=== PATIENT | female | born 1995 | race African-American/Black ===

== ENCOUNTER 2017-11-30 20:21 | Inpatient (IN) | payer OTHER ==
[2017-11-30] MEDS: IV NORMAL SALINE 1000ML BAG 1,000 ML IV (20:31)
[2017-11-30 20:38] LABS: ADD MAN DIFF? NO
[2017-11-30 20:40] LABS: BASO % 0 % (0-3); EOS # 0.1 x10^3/uL (0.0-0.7); EOS % 1 % (0-3); HEMATOCRIT 37.5 % (36.0-47.0); HEMOGLOBIN 12.5 g/dL (12.0-15.5); LYMPH # 3.1 x10^3/uL (1.0-4.8); LYMPH % 26 % (24-48); MEAN CORPUSCULAR HEMOGLOBIN 30 pg (25-35); MEAN CORPUSCULAR HGB CONC 33 g/dL (31-37); MEAN CORPUSCULAR VOLUME 90 fL (79-100); MONO # 0.5 x10^3/uL (0.0-1.1); MONO % 4 % (0-9); NEUT # 8.2 x10^3uL (1.8-7.7); NEUT % 69 % (31-73); PLATELET COUNT 204 x10^3/uL (140-400); RED BLOOD COUNT 4.18 x10^6/uL (3.50-5.40); RED CELL DISTRIBUTION WIDTH 13.5 % (11.5-14.5); WHITE BLOOD COUNT 11.8 x10^3/uL (4.0-11.0)
[2017-11-30 20:50] LABS: ETHANOL < 10 mg/dL (0-10)
[2017-11-30 20:56] LABS: ALBUMIN 3.8 g/dL (3.4-5.0); ALBUMIN/GLOBULIN RATIO 1.1 (1.0-1.7); ALK PHOS 76 U/L (46-116); ALT (SGPT) 67 U/L (14-59); AMYLASE 113 U/L (25-115); ANION GAP 7 (6-14); AST (SGOT) 150 U/L (15-37); BLOOD UREA NITROGEN 8 mg/dL (7-20); BUN/CREATININE RATIO 7 (6-20); CARBON DIOXIDE 28 mmol/L (21-32); CHLORIDE 104 mmol/L (98-107); CREATININE 1.2 mg/dL (0.6-1.0); GFR 56.7; GLUCOSE 138 mg/dL (70-99); SODIUM 139 mmol/L (136-145); TOTAL BILIRUBIN 0.3 mg/dL (0.2-1.0); TOTAL PROTEIN 7.2 g/dL (6.4-8.2)
[2017-11-30 20:59] LABS: POTASSIUM 2.9 mmol/L (3.5-5.1)
[2017-11-30] MEDS: IOHEXOL 300 MG/ML 100ML VIAL. IV (20:59)
[2017-11-30 21:09] LABS: INR 1.2 (0.8-1.1); PARTIAL THROMBOPLASTIN TIME 30 SEC (24-38); PROTHROMBIN TIME PATIENT 14.6 SEC (11.7-14.0)
[2017-11-30] MEDS: MORPHINE SULFATE 4 MG/ML DISP.SYRIN. IV ×2 (21:13→23:29)
[2017-11-30] MEDS: ONDANSETRON PF 4 MG/2 ML VIAL. IV ×2 (21:13→23:29)
[2017-11-30] MEDS ORDERED: CONTRAST GIVEN. MC (21:15)
[2017-11-30] MEDS ORDERED: ACETAMINOPHEN 325 MG TABLET. PO (22:30)
[2017-11-30] MEDS: POTASSIUM CHLORIDE 20 MEQ TABLET.ER. PO ×2 (22:51→23:00)
[2017-12-01] MEDS ORDERED: MORPHINE SULFATE 2 MG/ML DISP.SYRIN. IV (00:45)
[2017-12-01] MEDS: MORPHINE SULFATE 4 MG/ML DISP.SYRIN. IV ×6 (00:52→17:51)
[2017-12-01] MEDS ORDERED: KETOROLAC 15 MG/ML VIAL. IV (08:30)
[2017-12-01] MEDS ORDERED: ZOLPIDEM 5 MG TABLET. PO (08:30)
[2017-12-01] MEDS: NAPROXEN 500 MG TABLET PO ×2 (09:25→22:00)
[2017-12-01] MEDS: FAMOTIDINE 20 MG/2 ML VIAL IVP (09:26)
[2017-12-01] MEDS: POTASSIUM CHLORIDE 20 MEQ TABLET.ER. PO (09:26)
[2017-12-01 09:50] LABS: ADD MAN DIFF? NO
[2017-12-01 09:52] LABS: BASO % 0 % (0-3); EOS % 0 % (0-3); HEMATOCRIT 33.8 % (36.0-47.0); HEMOGLOBIN 11.4 g/dL (12.0-15.5); LYMPH # 1.3 x10^3/uL (1.0-4.8); LYMPH % 11 % (24-48); MEAN CORPUSCULAR HEMOGLOBIN 30 pg (25-35); MEAN CORPUSCULAR HGB CONC 34 g/dL (31-37); MEAN CORPUSCULAR VOLUME 89 fL (79-100); MONO # 0.5 x10^3/uL (0.0-1.1); MONO % 5 % (0-9); NEUT # 9.3 x10^3uL (1.8-7.7); NEUT % 83 % (31-73); PLATELET COUNT 137 x10^3/uL (140-400); RED BLOOD COUNT 3.78 x10^6/uL (3.50-5.40); RED CELL DISTRIBUTION WIDTH 13.6 % (11.5-14.5); WHITE BLOOD COUNT 11.2 x10^3/uL (4.0-11.0)
[2017-12-01 10:06] LABS: ANION GAP 8 (6-14); BLOOD UREA NITROGEN 7 mg/dL (7-20); CALCIUM 8.8 mg/dL (8.5-10.1); CARBON DIOXIDE 26 mmol/L (21-32); CHLORIDE 104 mmol/L (98-107); CREATININE 0.8 mg/dL (0.6-1.0); GFR 109.6; GLUCOSE 103 mg/dL (70-99); POTASSIUM 3.6 mmol/L (3.5-5.1); SODIUM 138 mmol/L (136-145)
[2017-12-01] MEDS: ONDANSETRON PF 4 MG/2 ML VIAL. IV (10:20)
[2017-12-01 11:03] LABS: BILIRUBIN,URINE NEGATIVE (NEG); CLARITY,URINE CLEAR; COLOR,URINE YELLOW; GLUCOSE,URINE NEGATIVE (NEG); NITRITE,URINE NEGATIVE (NEG); PH,URINE 5.5; PROTEIN,URINE NEGATIVE (NEG-TRACE); UROBILINOGEN,URINE 0.2 mg/dL (0.2 mg/dL)
[2017-12-01 11:11] LABS: BACTERIA,URINE MOD /HPF (0-FEW); BARBITURATES NEG (NEG); BENZODIAZEPINES NEG (NEG); CANNABINOIDS POS (NEG); COCAINE NEG (NEG); METHADONE NEG (NEG); OPIATES POS (NEG); PHENCYCLIDINE NEG (NEG); SQUAMOUS EPITHELIAL CELL,UR MANY /LPF
[2017-12-01 11:13] LABS: AMPHETAMINE/METHAMPHETAMINE NEG (NEG); ETHANOL, URINE NEG (NEG)
[2017-12-01] MEDS: PROCHLORPERAZINE 10 MG/2 ML VIAL. IV (12:48)
[2017-12-01] MEDS ORDERED: LIDOCAINE 2% JELLY 6ML IN APPLICATOR. MM (13:00)
[2017-12-01] MEDS: LIDOCAINE (700MG/PATCH) PATCH. TD (17:49)
[2017-12-01] MEDS: PATCH REMOVAL. MC (17:50)
[2017-12-01] MEDS: MUPIROCIN 2 % TOPICAL CREAM 15GM TUBE. TP ×2 (17:50→20:40)
[2017-12-01] MEDS: oxyCODONE/APAP 5/325 1 TAB TABLET PO (20:39)
[2017-12-02] MEDS: ONDANSETRON PF 4 MG/2 ML VIAL. IV (08:02)
[2017-12-02] MEDS: FAMOTIDINE 20 MG/2 ML VIAL IVP (08:02)
[2017-12-02] MEDS: oxyCODONE/APAP 5/325 1 TAB TABLET PO ×3 (08:03→20:34)
[2017-12-02] MEDS: NAPROXEN 500 MG TABLET PO ×2 (08:03→20:34)
[2017-12-02] MEDS: ONDANSETRON ODT 4 MG TAB.RAPDIS. PO ×2 (08:24→16:03)
[2017-12-02] MEDS: FAMOTIDINE 20 MG TABLET. PO (09:42)
[2017-12-02] MEDS: MUPIROCIN 2 % TOPICAL CREAM 15GM TUBE. TP ×3 (09:42→20:34)
[2017-12-02] MEDS: LIDOCAINE (700MG/PATCH) PATCH. TD (09:42)
[2017-12-02] MEDS: PATCH REMOVAL. MC (20:35)
[2017-12-03] MEDS: oxyCODONE/APAP 5/325 1 TAB TABLET PO ×2 (01:47→09:16)
[2017-12-03] MEDS: MUPIROCIN 2 % TOPICAL CREAM 15GM TUBE. TP (09:00)
[2017-12-03] MEDS ORDERED: FAMOTIDINE 20 MG TABLET. PO (09:00)
[2017-12-03] MEDS: FAMOTIDINE 20 MG TABLET. PO (09:15)
[2017-12-03] MEDS: NAPROXEN 500 MG TABLET PO (09:16)
[2017-12-03] MEDS: LIDOCAINE (700MG/PATCH) PATCH. TD (09:16)
== END 2017-12-03 12:45 | disposition home or self-care (01) | DRG 200 ==
LOC: ER 20:21 → 4 NORTH 22:39
DX: S27.0XXA Traumatic pneumothorax, initial encounter (principal); S32.019A Unspecified fracture of first lumbar vertebra, initial encounter for closed fracture; S22.31XA Fracture of one rib, right side, initial encounter for closed fracture; S27.322A Contusion of lung, bilateral, initial encounter; S32.029A Unspecified fracture of second lumbar vertebra, initial encounter for closed fracture; S32.039A Unspecified fracture of third lumbar vertebra, initial encounter for closed fracture; N32.89 Other specified disorders of bladder; N83.202 Unspecified ovarian cyst, left side; S70.312A Abrasion, left thigh, initial encounter; S40.211A Abrasion of right shoulder, initial encounter; K31.89 Other diseases of stomach and duodenum; V48.5XXA Car driver injured in noncollision transport accident in traffic accident, initial encounter; Y93.89 Activity, other specified; Y99.8 Other external cause status; Y92.488 Other paved roadways as the place of occurrence of the external cause; V89.2XXA Person injured in unspecified motor-vehicle accident, traffic, initial encounter
CPT/HCPCS: 36415; 70450; 71045; 71260; 72125; 73030; 74177; 80048; 80053; 80307; 81001; 82150; 85025; 85610; 85730; 86850; 86900; 86901; 96365; 96374; 96375; 99285; 99285-25; G0480; J0780; J2270; J2405; J7030; Q0162; Q9967; S0028

== ENCOUNTER 2017-12-20 12:55 | Emergency (ER) | payer OTHER ==
[~2017-12-20] VITALS: Ht 165.1 cm; Wt 59.2 kg
[~2017-12-20 12:55] MED LIST: OXYC1TAB7 PO
[2017-12-20 13:05] VITALS: BP 106/57
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
== END 2017-12-20 14:05 | disposition home or self-care (01) ==
LOC: ER 12:55
DX: Z04.1 Encounter for examination and observation following transport accident (principal); V89.2XXA Person injured in unspecified motor-vehicle accident, traffic, initial encounter; Y93.89 Activity, other specified; Y92.410 Unspecified street and highway as the place of occurrence of the external cause; Y99.8 Other external cause status
CPT/HCPCS: 99281

== ENCOUNTER 2019-01-29 19:43 | Observation (INO) | payer OTHER ==
[~2019-01-29] VITALS: Ht 162.6 cm; Wt 63.5 kg
[2019-01-29 20:52] LABS: BASO % 0 % (0-3); EOS # 0.1 x10^3/uL (0.0-0.7); EOS % 2 % (0-3); HEMATOCRIT 33.8 % (36.0-47.0); HEMOGLOBIN 11.9 g/dL (12.0-15.5); LYMPH # 1.7 x10^3/uL (1.0-4.8); LYMPH % 20 % (24-48); MEAN CORPUSCULAR HEMOGLOBIN 32 pg (25-35); MEAN CORPUSCULAR HGB CONC 35 g/dL (31-37); MEAN CORPUSCULAR VOLUME 91 fL (79-100); MONO # 0.6 x10^3/uL (0.0-1.1); MONO % 7 % (0-9); NEUT # 6.2 x10^3/uL (1.8-7.7); NEUT % 71 % (31-73); PLATELET COUNT 165 x10^3/uL (140-400); RED BLOOD COUNT 3.73 x10^6/uL (3.50-5.40); RED CELL DISTRIBUTION WIDTH 13.9 % (11.5-14.5); WHITE BLOOD COUNT 8.7 x10^3/uL (4.0-11.0)
[2019-01-29 21:04] LABS: CALCIUM 9.1 mg/dL (8.5-10.1); CREATININE 0.7 mg/dL (0.6-1.0); GFR 125.5; POTASSIUM 3.5 mmol/L (3.5-5.1)
[2019-01-29 21:09] LABS: ALBUMIN 3.1 g/dL (3.4-5.0); ALBUMIN/GLOBULIN RATIO 0.8 (1.0-1.7); TOTAL BILIRUBIN 0.2 mg/dL (0.2-1.0)
--- NOTE | 2019-01-29 22:14 | RAD ---
Exam: Ultrasound body part Indication: Indication Technique: Real-time grayscale and color Doppler images of the pelvis were obtained by the department gasket inspector. Comparisons: None FINDINGS: Uterus measures 12.9 x 10.9 x 8.8 cm. Within the uterus there is a isoechoic vascular mass with similar appearance to normal placenta. Right ovary measures 3.5 x 4.0 x 1.7 cm. Left ovary measures 4.2 x 2.2 x 1.9 cm. IMPRESSION: Isoechoic tissue within the endometrium which is vascular. In the setting of a miscarriage stenosis consistent with retained products of conception. FOR INTERNAL CODING PURPOSES Critical result: Findings discussed with Asuncion WICK RN at 01/29/2019 10:07 PM. RESULT CODE: (C) Electronically signed by: Marlene Peacock MD (01/29/2019 10:11 PM) [facility]
[2019-01-29] MEDS ORDERED: KETOROLAC 30 MG/ML VIAL. IV ONE (22:45)
--- NOTE | 2019-01-29 22:47 | PHYS DOC ---
Past Medical History Past Medical History: No Pertinent History Past Surgical History: No Surgical History Alcohol Use: Occasionally Drug Use: None Adult General Chief Complaint Chief Complaint: VAGINAL BLEEDING HPI HPI 23-year-old female presents to the emergency department with complaints of vaginal bleeding and delivery of fetus. Patient states she started bleeding yesterday intermittently subsequent worsening naproxen one hour prior to her arrival tonight she states she looked down and saw legs coming from her vagina with subsequent delivery of fetus. Patient states she was seen at [facility] O week or so ago with vaginal bleeding, threatened AB at that time. Patient's unknown her last menstrual period. She currently denies any pain on examination. Unsure if she passed the placenta. This is patient's first no previous history of . Patient without acute medical history. Review of Systems Review of Systems Constitutional: Denies fever or chills [] Eyes: Denies change in visual acuity, redness, or eye pain [] HENT: Denies nasal congestion or sore throat [] Respiratory: Denies cough or shortness of breath [] Cardiovascular: No additional information not addressed in HPI [] GI: abdominal cramping : vaginal bleeding Neurologic: Denies headache, focal weakness or sensory changes [] All other systems were reviewed and found to be within normal limits, except as documented in this note. Current Medications Current Medications Current Medications Medications (Trade) Dose Ordered Sig/Elizabeth Start Time Stop Time Status Last Admin Dose Admin Cefazolin Sodium 1 gm/Dextrose 50 ml @ 100 mls/hr ONCE ONCE 01/29/19 23:00 01/29/19 23:29 DC 01/29/19 23:01 100 MLS/HR Ketorolac Tromethamine (Toradol 30mg Vial) 30 mg 1X ONCE 01/29/19 22:45 01/29/19 22:46 DC 01/29/19 23:01 30 MG Oxytocin/Sodium Chloride 500 ml @ 205 mls/hr 1X ONCE 01/29/19 23:55 01/30/19 02:21 01/30/19 00:03 205 MLS/HR Sodium Chloride 1,000 ml @ 1,000 mls/hr 1X ONCE 01/29/19 23:15 01/30/19 00:14 DC 01/29/19 23:08 1,000 MLS/HR Allergies Allergies Allergies Coded Allergies Type Severity Reaction Last Updated Verified No Known Drug Allergies 11/30/17 No Physical Exam Physical Exam Constitutional: Well developed, well nourished, tearful, non-toxic appearance. [] Cardiovascular:Heart rate regular rhythm, no murmur [] Lungs & Thorax: Bilateral breath sounds clear to auscultation [] Abdomen: fundus below umbilicus Skin: Warm, dry, no erythema, no rash. [] Back: No tenderness, no CVA tenderness. [] Extremities: No tenderness, no cyanosis, no edema. [] Neurologic: Alert and oriented X 3, no focal deficits noted. [] Psychologic: Affect normal, judgement normal, mood normal. [] Speculum exam: Visualization with cord and tissue coming from the cervix. Attempted removal of placenta with slow retraction. Placenta and products were removed however repeat ultrasound reveals concern for retained products. Current Patient Data Vital Signs Vital Signs Date Time Temp Pulse Resp B/P (MAP) Pulse Ox O2 Delivery O2 Flow Rate FiO2 01/29/19 20:14 98.1 99 20 143/81 (101) 100 Room Air 98.1 Lab Values Laboratory Tests Test 01/29/19 20:44 White Blood Count 8.7 x10^3/uL (4.0-11.0) Red Blood Count 3.73 x10^6/uL (3.50-5.40) Hemoglobin 11.9 g/dL (12.0-15.5) L Hematocrit 33.8 % (36.0-47.0) L Mean Corpuscular Volume 91 fL (79-100) Mean Corpuscular Hemoglobin 32 pg (25-35) Mean Corpuscular Hemoglobin Concent 35 g/dL (31-37) Red Cell Distribution Width 13.9 % (11.5-14.5) Platelet Count 165 x10^3/uL (140-400) Neutrophils (%) (Auto) 71 % (31-73) Lymphocytes (%) (Auto) 20 % (24-48) L Monocytes (%) (Auto) 7 % (0-9) Eosinophils (%) (Auto) 2 % (0-3) Basophils (%) (Auto) 0 % (0-3) Neutrophils # (Auto) 6.2 x10^3/uL (1.8-7.7) Lymphocytes # (Auto) 1.7 x10^3/uL (1.0-4.8) Monocytes # (Auto) 0.6 x10^3/uL (0.0-1.1) Eosinophils # (Auto) 0.1 x10^3/uL (0.0-0.7) Basophils # (Auto) 0.0 x10^3/uL (0.0-0.2) Sodium Level 137 mmol/L (136-145) Potassium Level 3.5 mmol/L (3.5-5.1) Chloride Level 105 mmol/L (98-107) Carbon Dioxide Level 24 mmol/L (21-32) Anion Gap 8 (6-14) Blood Urea Nitrogen 6 mg/dL (7-20) L Creatinine 0.7 mg/dL (0.6-1.0) Estimated GFR (Cockcroft-Gault) 125.5 BUN/Creatinine Ratio 9 (6-20) Glucose Level 79 mg/dL (70-99) Calcium Level 9.1 mg/dL (8.5-10.1) Total Bilirubin 0.2 mg/dL (0.2-1.0) Aspartate Amino Transferase (AST) 14 U/L (15-37) L Alanine Aminotransferase (ALT) 11 U/L (14-59) L Alkaline Phosphatase 62 U/L (46-116) Total Protein 7.0 g/dL (6.4-8.2) Albumin 3.1 g/dL (3.4-5.0) L Albumin/Globulin Ratio 0.8 (1.0-1.7) L Laboratory Tests 01/29/19 20:44 Laboratory Tests 01/29/19 20:44 EKG EKG [] Radiology/Procedures Radiology/Procedures [facility] [address] [place], [place] [id number] IMAGING REPORT Signed PATIENT: HILARIO PORTER ACCOUNT: [id number] : 1995 LOCATION: ER AGE: 23 SEX: F EXAM STATUS: REG ER ORD. PHYSICIAN: OCTAVIO WICK MD REASON: demise approx 17 weeks .products of conception. PROCEDURE: PELVIS ULTRASOUND Exam: Ultrasound body part Indication: Indication Technique: Real-time grayscale and color Doppler images of the pelvis were obtained by the department hi lift operator. Comparisons: None FINDINGS: Uterus measures 12.9 x 10.9 x 8.8 cm. Within the uterus there is a isoechoic vascular mass with similar appearance to normal placenta. Right ovary measures 3.5 x 4.0 x 1.7 cm. Left ovary measures 4.2 x 2.2 x 1.9 cm. IMPRESSION: Isoechoic tissue within the endometrium which is vascular. In the setting of a miscarriage stenosis consistent with retained products of conception. FOR INTERNAL CODING PURPOSES Critical result: Findings discussed with Asuncion WICK RN at 01/29/2019 10:07 PM. RESULT CODE: (C) Electronically signed by: Marlene Salcido MD (01/29/2019 10:11 PM) [facility] DICTATED and SIGNED BY: MARLENE SALCIDO MD DATE: 01/29/192210 [] [facility] [address] [place], [place] [id number] IMAGING REPORT Signed PATIENT: HILARIO PORTER ACCOUNT: [id number] : 1995 LOCATION: ER AGE: 23 SEX: F EXAM STATUS: REG ER ORD. PHYSICIAN: OCTAVIO WICK MD REASON: repeat after delivery of placenta - make sure no retained products of shahana PROCEDURE: PELVIS ULTRASOUND Ultrasound pelvis complete 10:36 PM HISTORY: retained products of conception. Delivery of placenta Sonographic examination of pelvis performed and multiple static images were obtained COMPARISON: 9:19 PM The uterus measures 12.7 x 9.3] 2 centers. The right ovary appears normal normal blood flow measures 4.1 x 3.5 x 2.4 centers. Left ovary appears normal normal blood flow measures 4.0 x 1.9 x 1.8 cm. The cervix appears normal measures 3.8 centers in length. There is complex echogenicity within the endometrium with a endometrium that measures 6.8 x 6.3 x 2.7 cm. IMPRESSION: Findings consistent with retained products of conception. This appears mildly improved. Electronically signed by: Mar Velasquez III, MD (01/29/2019 11:15 PM) [place] [id number] DICTATED and SIGNED BY: MAR VELASQUEZ III, MD DATE: 01/29/19 3559 Course & Med Decision Making Course & Med Decision Making Pertinent Labs and Imaging studies reviewed. (See chart for details) []23-year-old female presents to the emergency department with complaints of vaginal bleeding and delivery of fetus. Patient states she started bleeding yesterday intermittently subsequent worsening naproxen one hour prior to her arrival tonight she states she looked down and saw legs coming from her vagina with subsequent delivery of fetus. Patient states she was seen at [facility] O week or so ago with vaginal bleeding, threatened AB at that time. Patient's unknown her last menstrual period. She currently denies any pain on examination. Unsure if she passed the placenta. This is patient's first no previous history of . Patient without acute medical history. He will 11.9, heart rate 85, blood pressure stable. Please see examination under physical exam ultrasound was performed revealing evidence of retained products. Attempted removal of placenta however despite some express material there was still continued retained products 6.8 x 6.3 x 2.7 per ultrasound. Discussed with HEAD OF RESEARCH & INSIGHTS on-call Dr. Hargrove, recommends initiation of Pitocin in the emergency department, if patient does not expel/express retained products can admit patient under him with continued Pitocin and further evaluation. Despite Pitocin, patient was continued retained parts of conception. Will admit patient to VOICE SYSTEMS ENGINEER. Aaron Disclaimer Dragon Disclaimer This electronic medical record was generated, in whole or in part, using a voice recognition dictation system. Departure Departure Impression: Primary Impression: Miscarriage Additional Impression: Retained products of conception Disposition: ADMITTED INPATIENT Referrals: NO PCP (PCP) Problem Qualifiers OCTAVIO WICK MD Jan 29, 2019 22:47
[2019-01-29] MEDS ORDERED: ceFAZolin SODIUM 1 GM in IV DEXTROSE 5% 50 ML IV SCH (23:00)
[2019-01-29] MEDS ORDERED: ceFAZolin SODIUM 1 GM in IV DEXTROSE 5% 50 ML IV ONE (23:00)
[2019-01-29] MEDS ORDERED: IV NORMAL SALINE 1000ML BAG 1,000 ML IV ONE (23:15)
--- NOTE | 2019-01-29 23:18 | RAD ---
Ultrasound pelvis complete 10:36 PM HISTORY: retained products of conception. Delivery of placenta Sonographic examination of pelvis performed and multiple static images were obtained COMPARISON: 9:19 PM The uterus measures 12.7 x 9.3] 2 centers. The right ovary appears normal normal blood flow measures 4.1 x 3.5 x 2.4 centers. Left ovary appears normal normal blood flow measures 4.0 x 1.9 x 1.8 cm. The cervix appears normal measures 3.8 centers in length. There is complex echogenicity within the endometrium with a endometrium that measures 6.8 x 6.3 x 2.7 cm. IMPRESSION: Findings consistent with retained products of conception. This appears mildly improved. Electronically signed by: Ruddy Katz III, MD (01/29/2019 11:15 PM) [id number]
[2019-01-29] MEDS ORDERED: OXYTOCIN 30 UNIT/500 ML PREMIX 500 ML IV ONE (23:55)
[2019-01-30] MEDS ORDERED: IV NORMAL SALINE 1000ML BAG 1,000 ML IV ONE (00:45)
[2019-01-30] MEDS ORDERED: MORPHINE SULFATE 2 MG/ML VIAL. IV PRN (00:45)
[2019-01-30] MEDS ORDERED: ONDANSETRON PF 4 MG/2 ML VIAL. IV PRN (00:45)
[2019-01-30 02:00] VITALS: BP 109/69
[2019-01-30 05:53] VITALS: BP 97/51
[2019-01-30] MEDS: METHYLERGONOVINE MALEATE 0.2 MG TABLET PO SCH ×2 (09:00→13:54)
[2019-01-30] MEDS ORDERED: oxyCODONE/APAP 5/325 1 TAB TABLET PO PRN (09:00)
[2019-01-30] MEDS ORDERED: IBUPROFEN 400 MG TABLET. PO PRN (09:00)
[2019-01-30] MEDS ORDERED: OXYTOCIN IVP SCH (09:00)
[2019-01-30] MEDS ORDERED: RINGERS LACTATED IVP SCH (09:00)
[2019-01-30 09:47] LABS: HEMATOCRIT 31.3 % (36.0-47.0); HEMOGLOBIN 10.6 g/dL (12.0-15.5)
--- NOTE | 2019-01-30 13:09 | PDOC1 ---
History and Physical Date of Admission Date of Admission DATE: 01/30/19 TIME: 13:02 Identification/Chief Complaint Chief Complaint vaginal bleeding Source Source: Chart review, Patient History of Present Illness History of Present Illness 23 y/o G1 @ 16 wks with vaginal bleeding for past 1 month. She was seen in ED and passed fetus but not placenta. She denies any triggering events prior to miscarriage. Past Medical History Cardiovascular: No pertinent hx Pulmonary: No pertinent hx GI: No pertinent hx Heme/Onc: No pertinent hx Hepatobiliary: No pertinent hx Psych: No pertinent hx Rheumatologic: No pertinent hx Infectious disease: No pertinent hx Renal/: No pertinent hx Endocrine: No pertinent hx Past Surgical History Past Surgical History: Hernia Repair, No pertinent history Family History Family History: Other Social History ALCOHOL: none Drugs: None Current Problem List Problem List Problems Medical Problems: (1) Miscarriage Status: Acute (2) Retained products of conception Status: Acute Current Medications Current Medications Current Medications Ketorolac Tromethamine (Toradol 30mg Vial) 30 mg 1X ONCE IV Last administered on 01/29/19at 23:01; Start 01/29/19 at 22:45; Stop 01/29/19 at 22:46; Status DC Cefazolin Sodium 1 gm/Dextrose 50 ml @ 100 mls/hr ONCE IV ; Start 01/29/19 at 23:00; Stop 01/29/19 at 22:46; Status DC Cefazolin Sodium 1 gm/Dextrose 50 ml @ 100 mls/hr ONCE ONCE IV Last administered on 01/29/19at 23:01; Start 01/29/19 at 23:00; Stop 01/29/19 at 23:29; Status DC Sodium Chloride 1,000 ml @ 1,000 mls/hr 1X ONCE IV Last administered on 01/29/19at 23:08; Start 01/29/19 at 23:15; Stop 01/30/19 at 00:14; Status DC Oxytocin/Sodium Chloride 500 ml @ 205 mls/hr 1X ONCE IV Last administered on 01/30/19at 00:03; Start 01/29/19 at 23:55; Stop 01/30/19 at 02:21; Status DC Ondansetron HCl (Zofran) 4 mg PRN Q8HRS PRN IV NAUSEA/VOMITING Last administered on 01/30/19at 11:52; Start 01/30/19 at 00:45; Stop 01/31/19 at 00:44 Morphine Sulfate (Morphine Sulfate) 2 mg PRN Q2HR PRN IV PAIN Last administered on 01/30/19at 03:35; Start 01/30/19 at 00:45; Stop 01/31/19 at 00:44 Sodium Chloride 1,000 ml @ 75 mls/hr 1X ONCE IV Last administered on 01/30/19at 02:00; Start 01/30/19 at 00:45; Stop 01/30/19 at 14:04 Methylergonovine Maleate (Methergine) 0.2 mg TID PO Last administered on 01/30/19at 09:00; Start 01/30/19 at 09:00 Oxytocin 20 unit/ Ringer's Solution 1,002 ml @ 125 mls/hr Q8H1M IVP ; Start 01/30/19 at 09:00 Ibuprofen (Motrin) 800 mg PRN Q8HRS PRN PO INFLAMMATION; Start 01/30/19 at 09:00 Oxycodone/ Acetaminophen (Percocet 5/325) 1 tab PRN Q4HRS PRN PO PAIN Last administered on 01/30/19at 10:07; Start 01/30/19 at 09:00 Active Scripts Active Oxycodone-Acetaminophen 5-325 (Oxycodone Hcl/Acetaminophen) 1 Each Tablet 1 Tab PO PRN Q4HRS PRN 5 Days Reported No Known Medications Prior To Admisstion (Info) Each 1 Each MC Allergies Allergies: Coded Allergies: No Known Drug Allergies (Unverified , 11/30/17) ROS General: YES: Fatigue; No: Chills, Night Sweats, Malaise, Appetite, Other PSYCHOLOGICAL ROS: YES: Anxiety; No: Behavioral Disorder, Concentration difficultie, Decreased libido, Depression, Disorientation, Hallucinations, Hostility, Irritablity, Memory difficulties, Mood Swings, Obsessive thoughts, Physical abuse, Sexual abuse, Sleep disturbances, Suicidal ideation, Other Eyes: No Blurry vision, No Decreased vision, No Double vision, No Dry eyes, No Excessive tearing, No Eye Pain, No Itchy Eyes, No Loss of vision, No Photophobia, No Scotomata, No Uses contacts, No Uses glasses, No Other HEENT: No: Heacaches, Visual Changes, Hearing change, Nasal congestion, Nasal discharge, Oral lesions, Sinus pain, Sore Throat, Epistaxis, Sneezing, Snoring, Tinnitus, Vertigo, Vocal changes, Other ALLERGY AND IMMUNOLOGY: No: Hives, Insect Bite Sensitivity, Itchy/Watery Eyes, Nasal Congestion, Post Nasal Drip, Seasonal Allergies, Other Hematological and Lymphatic: No: Bleeding Problems, Blood Clots, Blood Transfusions, Brusing, Night Sweats, Pallor, Swollen Lymph Nodes, Other ENDOCRINE: No: Breast Changes, Galactorrhea, Hair Pattern Changes, Hot Flashes, Malaise/lethargy, Mood Swings, Palpitations, Polydipsia/polyuria, Skin Changes, Temperature Intolerance, Unexpected Weight Changes, Other Breast: No New/Changing Breast Lumps, No Nipple changes, No Nipple discharge, No Other Respiratory: No: Cough, Hemoptysis, Orthopnea, Pleuritic Pain, Shortness of breath, SOB with excertion, Sputum Changes, Stridor, Tachypnea, Wheezing, Other Cardiovascular: No Chest Pain, No Palpitations, No Orthopnea, No Paroxysmal Noc. Dyspnea, No Edema, No Lt Headedness, No Other Gastrointestinal: Yes Abdominal Pain (vaginal bleeding) Genitourinary: No Dysuria, No Frequency, No Incontinence, No Hematuria, No Retention, No Discharge, No Urgency, No Pain, No Flank Pain, No Other, No , No , No , No , No , No , No Neurological: No Behavorial Changes, No Bowel/Bladder ControlChng, No Confusion, No Dizziness, No Gait Disturbance, No Headaches, No Impaired Coord/balance, No Memory Loss, No Numbness/Tingling, No Seizures, No Speech Problems, No Tremors, No Visual Changes, No Weakness, No Other Skin: No Dry Skin, No Eczema, No Hair Changes, No Lumps, No Mole Changes, No Mottling, No Nail Changes, No Pruritus, No Rash, No Skin Lesion Changes, No Other, No Acne Physical Exam General: Alert, Oriented X3, Cooperative HEENT: Atraumatic Lungs: Clear to auscultation Heart: S1S2 Breasts: Normal Abdomen: Normal bowel sounds, Soft, No masses Psych/Mental Status: Mental status NL Vitals Vitals Vital Signs Date Time Temp Pulse Resp B/P (MAP) Pulse Ox O2 Delivery O2 Flow Rate FiO2 01/30/19 10:07 18 Room Air 01/30/19 05:53 98.0 72 97/51 (66) 100 98.0 Labs Labs Laboratory Tests Test 01/29/19 20:44 01/30/19 09:30 White Blood Count 8.7 x10^3/uL (4.0-11.0) Red Blood Count 3.73 x10^6/uL (3.50-5.40) Hemoglobin 11.9 g/dL (12.0-15.5) 10.6 g/dL (12.0-15.5) Hematocrit 33.8 % (36.0-47.0) 31.3 % (36.0-47.0) Mean Corpuscular Volume 91 fL (79-100) Mean Corpuscular Hemoglobin 32 pg (25-35) Mean Corpuscular Hemoglobin Concent 35 g/dL (31-37) 34 g/dL (31-37) Red Cell Distribution Width 13.9 % (11.5-14.5) Platelet Count 165 x10^3/uL (140-400) Neutrophils (%) (Auto) 71 % (31-73) Lymphocytes (%) (Auto) 20 % (24-48) Monocytes (%) (Auto) 7 % (0-9) Eosinophils (%) (Auto) 2 % (0-3) Basophils (%) (Auto) 0 % (0-3) Neutrophils # (Auto) 6.2 x10^3/uL (1.8-7.7) Lymphocytes # (Auto) 1.7 x10^3/uL (1.0-4.8) Monocytes # (Auto) 0.6 x10^3/uL (0.0-1.1) Eosinophils # (Auto) 0.1 x10^3/uL (0.0-0.7) Basophils # (Auto) 0.0 x10^3/uL (0.0-0.2) Sodium Level 137 mmol/L (136-145) Potassium Level 3.5 mmol/L (3.5-5.1) Chloride Level 105 mmol/L (98-107) Carbon Dioxide Level 24 mmol/L (21-32) Anion Gap 8 (6-14) Blood Urea Nitrogen 6 mg/dL (7-20) Creatinine 0.7 mg/dL (0.6-1.0) Estimated GFR (Cockcroft-Gault) 125.5 BUN/Creatinine Ratio 9 (6-20) Glucose Level 79 mg/dL (70-99) Calcium Level 9.1 mg/dL (8.5-10.1) Total Bilirubin 0.2 mg/dL (0.2-1.0) Aspartate Amino Transf (AST/SGOT) 14 U/L (15-37) Alanine Aminotransferase (ALT/SGPT) 11 U/L (14-59) Alkaline Phosphatase 62 U/L (46-116) Total Protein 7.0 g/dL (6.4-8.2) Albumin 3.1 g/dL (3.4-5.0) Albumin/Globulin Ratio 0.8 (1.0-1.7) Laboratory Tests Test 01/29/19 20:44 01/30/19 09:30 White Blood Count 8.7 x10^3/uL (4.0-11.0) Red Blood Count 3.73 x10^6/uL (3.50-5.40) Hemoglobin 11.9 g/dL (12.0-15.5) 10.6 g/dL (12.0-15.5) Hematocrit 33.8 % (36.0-47.0) 31.3 % (36.0-47.0) Mean Corpuscular Volume 91 fL (79-100) Mean Corpuscular Hemoglobin 32 pg (25-35) Mean Corpuscular Hemoglobin Concent 35 g/dL (31-37) 34 g/dL (31-37) Red Cell Distribution Width 13.9 % (11.5-14.5) Platelet Count 165 x10^3/uL (140-400) Neutrophils (%) (Auto) 71 % (31-73) Lymphocytes (%) (Auto) 20 % (24-48) Monocytes (%) (Auto) 7 % (0-9) Eosinophils (%) (Auto) 2 % (0-3) Basophils (%) (Auto) 0 % (0-3) Neutrophils # (Auto) 6.2 x10^3/uL (1.8-7.7) Lymphocytes # (Auto) 1.7 x10^3/uL (1.0-4.8) Monocytes # (Auto) 0.6 x10^3/uL (0.0-1.1) Eosinophils # (Auto) 0.1 x10^3/uL (0.0-0.7) Basophils # (Auto) 0.0 x10^3/uL (0.0-0.2) Sodium Level 137 mmol/L (136-145) Potassium Level 3.5 mmol/L (3.5-5.1) Chloride Level 105 mmol/L (98-107) Carbon Dioxide Level 24 mmol/L (21-32) Anion Gap 8 (6-14) Blood Urea Nitrogen 6 mg/dL (7-20) Creatinine 0.7 mg/dL (0.6-1.0) Estimated GFR (Cockcroft-Gault) 125.5 BUN/Creatinine Ratio 9 (6-20) Glucose Level 79 mg/dL (70-99) Calcium Level 9.1 mg/dL (8.5-10.1) Total Bilirubin 0.2 mg/dL (0.2-1.0) Aspartate Amino Transf (AST/SGOT) 14 U/L (15-37) Alanine Aminotransferase (ALT/SGPT) 11 U/L (14-59) Alkaline Phosphatase 62 U/L (46-116) Total Protein 7.0 g/dL (6.4-8.2) Albumin 3.1 g/dL (3.4-5.0) Albumin/Globulin Ratio 0.8 (1.0-1.7) VTE Prophylaxis Ordered VTE Prophylaxis Devices: Yes VTE Pharmacological Prophylaxi: Yes Assessment/Plan Assessment/Plan A: 16 wks Incomplete : stable P: Pt. was provided pitocin and methergine for treatment. Serial sonos indicate more resolvement of SAB. D/c home. F/u in 1 wk. FRANKO BELTRE Jr, MD Jan 30, 2019 13:09
[2019-01-30] MEDS ORDERED: IBUP-1027 PO (13:12)
--- NOTE | 2019-01-30 13:13 | DISCH ---
DISCHARGE INSTRUCTIONS Condition on Discharge Condition on Discharge: Stable Activity After Discharge Activity Instructions for Disc: Activity as tolerated Lifting Instructions after Dis: No heavy lifting Exercise Instruction after Dis: Progress as tolerated Driving Instructions after Dis: Do not drive today Diet after Discharge Diet after Discharge: Regular Diet Texture: Regular Liquid Texture: Thin Liquid Wound Incision Care Wound/Incision Care: Ice to area for comfort, Change dressing Contacting the after DC Call your doctor for: Concerns you may have Follow-Up Follow up with: Dr. Hargrove in 1 wk FRANKO HARGROVE Jr, MD Jan 30, 2019 13:13
--- NOTE | 2019-01-30 13:29 | RAD ---
Pelvic ultrasound 01/30/2019 CLINICAL HISTORY: Retained products of conception. TECHNIQUE: Using the distended urinary bladder as a sonographic window, a real-time ultrasound examination of the pelvis was performed. Multiple images were obtained. FINDINGS: The uterus is enlarged measuring 16.45 9.9 x 10.5 cm in longitudinal, transverse, and AP dimensions. The endometrial echo complex is thickened and heterogeneous measuring 6.5 cm in thickness consistent with the patient's history of retained products. This does not appear significant changed since the previous study. Neither ovary is visualized. No free fluid is noted. IMPRESSION: Findings are again seen consistent with retained products, unchanged. Electronically signed by: Rasta Marshall MD (01/30/2019 1:26 PM) [facility]
[2019-01-30 15:20] VITALS: BP 97/52
--- NOTE | 2019-01-30 16:40 | NUR ---
discharge Discharge instructions given to patient at this time, to follow up in 1 week with doctor. no questions or concerns noted. IV removed, patient tolerated well. Patient left with family and all her belongings.
--- NOTE | 2019-02-02 15:07 | PATHOLOGY ---
[facility] Accession Number: [id number] . 01 Material submitted: . product of conception - PRODUCTS OF CONCEPTION . 01 Clinical history: . demise approximately 17 weeks. . 02 Diagnosis: Intrauterine contents, removal: - Portion of umbilical cord. - Portions of blood clot. ([facility]:[place]; 02/02/2019) [facility] 02/02/2019 1150 Local . 02 Electronically signed: . Mckay Rodriguez MD, Pathologist NPI- [id number] . 01 Gross description: . Received in formalin labeled "Dee Meade, products of conception" is a 16 g aggregate of red brown clotted blood material measuring 6.0 x 5.5 x 2.0 cm, and a fragment of young-white membranous tissue weighing 1 g and measuring 4.0 x 0.8 x 0.3 cm. The clotted blood material is submitted entirely in cassettes A1-A8. The membranous tissue is serially sectioned and submitted in cassette A9. [place] [facility] 01/31/2019 0841 Local . 02 Pathologist provided ICD-10: O03.9 . 02 CPT . 903422 Specimen Comment: A courtesy copy of this report has been sent to Specimen Comment: [phone], . Specimen Comment: Report sent to / DR WICK Performed at: 01 [facility] [address], [place] [id number] MD Delonte Roe MD Phone: [phone] Performed at: 02 [facility] [address], [place] [id number] MD Jayden Klein MD Phone: [phone]
== END 2019-01-30 17:06 | disposition home or self-care (01) ==
LOC: ER 19:43 → 3 NORTH 01-30 00:38
PROVIDERS: ADMIT Obstetrics & Gynecology; ATTEND Obstetrics & Gynecology
DX: O02.1 Missed abortion (principal); Z3A.17 17 weeks gestation of pregnancy
CPT/HCPCS: 36415; 76856; 76857; 80053; 85014; 85018; 85025; 96365; 96366; 96367; 96375; 99284; G0378; J0690; J1885; J2270; J2405; J2590; J7030; 88305; G0379

== ENCOUNTER 2019-02-13 01:04 | Inpatient (IN) | payer OTHER ==
[~2019-02-13] VITALS: Ht 165.1 cm; Wt 63.5 kg
[~2019-02-13 01:04] MED LIST changes: +IBUP-1027 PO
[2019-02-13 02:31] LABS: BASO % 0 % (0-3); EOS # 0.1 x10^3/uL (0.0-0.7); EOS % 1 % (0-3); HEMATOCRIT 23.4 % (36.0-47.0); HEMOGLOBIN 8.1 g/dL (12.0-15.5); LYMPH # 1.5 x10^3/uL (1.0-4.8); LYMPH % 19 % (24-48); MEAN CORPUSCULAR HEMOGLOBIN 31 pg (25-35); MEAN CORPUSCULAR HGB CONC 35 g/dL (31-37); MEAN CORPUSCULAR VOLUME 91 fL (79-100); MONO # 0.6 x10^3/uL (0.0-1.1); MONO % 7 % (0-9); NEUT # 5.8 x10^3/uL (1.8-7.7); NEUT % 72 % (31-73); PLATELET COUNT 166 x10^3/uL (140-400); RED BLOOD COUNT 2.59 x10^6/uL (3.50-5.40)
[2019-02-13 02:39] LABS: ANION GAP 8 (6-14); BLOOD UREA NITROGEN 4 mg/dL (7-20); BUN/CREATININE RATIO 5 (6-20); CALCIUM 8.3 mg/dL (8.5-10.1); CARBON DIOXIDE 27 mmol/L (21-32); CHLORIDE 107 mmol/L (98-107); CREATININE 0.8 mg/dL (0.6-1.0); GFR 107.6; GLUCOSE 102 mg/dL (70-99); POTASSIUM 3.3 mmol/L (3.5-5.1); SODIUM 142 mmol/L (136-145)
[2019-02-13 02:44] LABS: ALBUMIN 2.3 g/dL (3.4-5.0); ALBUMIN/GLOBULIN RATIO 0.7 (1.0-1.7); ALK PHOS 72 U/L (46-116); AST (SGOT) 7 U/L (15-37); TOTAL BILIRUBIN 0.1 mg/dL (0.2-1.0); TOTAL PROTEIN 5.7 g/dL (6.4-8.2)
[2019-02-13 02:45] LABS: ALT (SGPT) < 6 U/L (14-59)
[2019-02-13 03:01] LABS: CLARITY,URINE CLOUDY; COLOR,URINE RED
[2019-02-13 03:08] LABS: SQUAMOUS EPITHELIAL CELL,UR FEW /LPF
[2019-02-13 03:09] LABS: BACTERIA,URINE FEW /HPF (0-FEW); RBC,URINE TNTC /HPF (0-2); WBC,URINE 20-40 /HPF (0-4)
[2019-02-13] MEDS ORDERED: ONDANSETRON PF 4 MG/2 ML VIAL. IV PRN ×2 (03:45→11:45)
--- NOTE | 2019-02-13 03:47 | PHYS DOC ---
Past Medical History Past Medical History: No Pertinent History Past Surgical History: No Surgical History Alcohol Use: Occasionally Drug Use: None Adult General Chief Complaint Chief Complaint: VAGINAL BLEEDING HPI HPI 23-year-old female presents to emergency Department complaints of vaginal bleeding. Patient was admitted on 01 29 after spontaneous delivery of 16-week-old fetus. She had retained parts of conception that time was supplemented to the hospital for further evaluation with PAPER GUILLOTINE OPERATOR. Patient received ultrasound on January 30 and was subsequently discharged. That report was reviewed revealing evidence of retained products at that time despite findings on ultrasound patient was discharged. Patient presents tonight with lower abdominal cramping, passage of large clots which started around 11 PM. She states she's gone through about 16 pads prior to her arrival. Review of Systems Review of Systems Constitutional: Denies fever or chills [] Respiratory: Denies cough or shortness of breath [] Cardiovascular: No additional information not addressed in HPI [] GI: + abdominal pain, no nausea, vomiting, bloody stools or diarrhea [] : vaginal bleeding Musculoskeletal: Denies back pain or joint pain [] Neurologic: Denies headache, focal weakness or sensory changes [] All other systems were reviewed and found to be within normal limits, except as documented in this note. Current Medications Current Medications Current Medications Medications (Trade) Dose Ordered Sig/Elizabeth Start Time Stop Time Status Last Admin Dose Admin Ondansetron HCl (Zofran) 4 mg PRN Q8HRS PRN 02/13/19 03:45 02/14/19 03:44 Allergies Allergies Allergies Coded Allergies Type Severity Reaction Last Updated Verified No Known Drug Allergies 11/30/17 No Physical Exam Physical Exam Constitutional: Well developed, well nourished, no acute distress, non-toxic appearance. [] Cardiovascular:Heart rate regular rhythm, no murmur [] Lungs & Thorax: Bilateral breath sounds clear to auscultation [] Abdomen: Bowel sounds normal, soft, mild tenderness, no masses, no pulsatile masses. [] Skin: Warm, dry, no erythema, no rash. [] Back: No tenderness, no CVA tenderness. [] Extremities: No tenderness, no cyanosis, no clubbing, ROM intact, no edema. [] Neurologic: Alert and oriented X 3, no focal deficits noted. [] Psychologic: Affect normal, judgement normal, mood normal. [] : vaginal exam reveals clotting, tissue expelled from cervical os Current Patient Data Vital Signs Vital Signs Date Time Temp Pulse Resp B/P (MAP) Pulse Ox O2 Delivery O2 Flow Rate FiO2 02/13/19 01:50 98.4 81 18 105/51 (69) 98 Room Air 98.4 Lab Values Laboratory Tests Test 02/13/19 02:10 02/13/19 02:45 02/13/19 02:55 White Blood Count 8.0 x10^3/uL (4.0-11.0) Red Blood Count 2.59 x10^6/uL (3.50-5.40) L Hemoglobin 8.1 g/dL (12.0-15.5) L Hematocrit 23.4 % (36.0-47.0) L Mean Corpuscular Volume 91 fL (79-100) Mean Corpuscular Hemoglobin 31 pg (25-35) Mean Corpuscular Hemoglobin Concent 35 g/dL (31-37) Red Cell Distribution Width 13.0 % (11.5-14.5) Platelet Count 166 x10^3/uL (140-400) Neutrophils (%) (Auto) 72 % (31-73) Lymphocytes (%) (Auto) 19 % (24-48) L Monocytes (%) (Auto) 7 % (0-9) Eosinophils (%) (Auto) 1 % (0-3) Basophils (%) (Auto) 0 % (0-3) Neutrophils # (Auto) 5.8 x10^3/uL (1.8-7.7) Lymphocytes # (Auto) 1.5 x10^3/uL (1.0-4.8) Monocytes # (Auto) 0.6 x10^3/uL (0.0-1.1) Eosinophils # (Auto) 0.1 x10^3/uL (0.0-0.7) Basophils # (Auto) 0.0 x10^3/uL (0.0-0.2) Maternal Serum HCG Beta Subunit 368 mIU/mL (0-5) H Sodium Level 142 mmol/L (136-145) Potassium Level 3.3 mmol/L (3.5-5.1) L Chloride Level 107 mmol/L (98-107) Carbon Dioxide Level 27 mmol/L (21-32) Anion Gap 8 (6-14) Blood Urea Nitrogen 4 mg/dL (7-20) L Creatinine 0.8 mg/dL (0.6-1.0) Estimated GFR (Cockcroft-Gault) 107.6 BUN/Creatinine Ratio 5 (6-20) L Glucose Level 102 mg/dL (70-99) H Calcium Level 8.3 mg/dL (8.5-10.1) L Total Bilirubin 0.1 mg/dL (0.2-1.0) L Aspartate Amino Transferase (AST) 7 U/L (15-37) L Alanine Aminotransferase (ALT) < 6 U/L (14-59) L Alkaline Phosphatase 72 U/L (46-116) Total Protein 5.7 g/dL (6.4-8.2) L Albumin 2.3 g/dL (3.4-5.0) L Albumin/Globulin Ratio 0.7 (1.0-1.7) L Urine Collection Type Unknown Urine Color Red Urine Clarity Cloudy Urine pH Urine Specific [place] 1.020 Urine Protein mg/dL (NEG-TRACE) Urine Glucose (UA) mg/dL (NEG) Urine Ketones (Stick) mg/dL (NEG) Urine Blood (NEG) Urine Nitrite (NEG) Urine Bilirubin (NEG) Urine Urobilinogen Dipstick mg/dL (0.2 mg/dL) Urine Leukocyte Esterase (NEG) Urine RBC Tntc /HPF (0-2) Urine WBC 20-40 /HPF (0-4) Urine Squamous Epithelial Cells Few /LPF Urine Bacteria Few /HPF (0-FEW) Urine Mucus Marked /LPF POC Urine HCG, Qualitative Hcg positive (Negative) Laboratory Tests 02/13/19 02:10 Laboratory Tests 02/13/19 02:10 EKG EKG [] Radiology/Procedures Radiology/Procedures [] Course & Med Decision Making Course & Med Decision Making Pertinent Labs and Imaging studies reviewed. (See chart for details) [] 23-year-old female presents to emergency Department complaints of vaginal bleeding. Patient was admitted on 01 29 after spontaneous delivery of 16-week-old fetus. She had retained parts of conception that time was supplemented to the hospital for further evaluation with PAPER GUILLOTINE OPERATOR. Patient received ultrasound on January 30 and was subsequently discharged. That report was reviewed revealing evidence of retained products at that time despite findings on ultrasound patient was discharged. Patient presents tonight with lower abdominal cramping, passage of large clots which started around 11 PM. She states she's gone through about 16 pads prior to her arrival. Discussed findings with patient at bedside will call PAPER GUILLOTINE OPERATOR Discussed exam findings with PAPER GUILLOTINE OPERATOR Plan for admit to Dr. Barreto - she will take patient for D/C this am Discussed admission with patient Aaron Disclaimer Aaron Disclaimer This electronic medical record was generated, in whole or in part, using a voice recognition dictation system. Departure Departure Impression: Primary Impression: Retained products of conception Disposition: ADMITTED INPATIENT Condition: STABLE Referrals: NO PCP (PCP) OCTAVIO WICK MD Feb 13, 2019 03:47
[2019-02-13] MEDS ORDERED: IV NORMAL SALINE 1000ML BAG 1,000 ML IV ONE (04:00)
[2019-02-13 05:41] VITALS: BP 108/64
[2019-02-13] MEDS ORDERED: MORPHINE SULFATE 2 MG/ML VIAL. IV ONE ×2 (06:15→09:00)
[2019-02-13] MEDS ORDERED: ONDANSETRON PF 4 MG/2 ML VIAL. ONE (10:42)
[2019-02-13] MEDS ORDERED: PROPOFOL 20 ML IV ONE (10:42)
[2019-02-13] MEDS ORDERED: LIDOCAINE 2% PF 5 ML VIAL. ONE (10:42)
[2019-02-13] MEDS ORDERED: DEXAMETHASONE SOD PHOS 4 MG/ML VIAL ONE (10:42)
[2019-02-13] MEDS ORDERED: SUCCINYLCHOLINE 200 MG/10 ML VIAL. ONE (10:43)
[2019-02-13] MEDS ORDERED: fentaNYL PF VIAL 100 MCG/2 ML VIAL ONE ×2 (10:44→11:14)
--- NOTE | 2019-02-13 11:10 | NUR ---
Patient transported to OR for D&C with Dr. Lauren.
[2019-02-13] MEDS ORDERED: fentaNYL PF VIAL 100 MCG/2 ML VIAL IVP PRN (11:30)
[2019-02-13] MEDS ORDERED: IV RINGERS,LACTATED 1000ML 1,000 ML IV SCH (11:33)
[2019-02-13] MEDS ORDERED: miSOPROStol 200 MCG TABLET ONE (11:38)
[2019-02-13] MEDS ORDERED: OXYTOCIN 10 UNIT/ML VIAL. ONE ×2 (11:38→12:06)
[2019-02-13] MEDS ORDERED: MIDAZOLAM HCL/PF 2 MG/2 ML VIAL. ONE (11:42)
[2019-02-13] MEDS ORDERED: HYDROmorphone 2 MG/ML VIAL IV PRN (11:45)
[2019-02-13] MEDS ORDERED: MORPHINE SULFATE 2 MG/ML VIAL. IV PRN (11:45)
[2019-02-13] MEDS ORDERED: fentaNYL PF VIAL 100 MCG/2 ML VIAL IV PRN ×2 (11:45)
[2019-02-13] MEDS ORDERED: PROCHLORPERAZINE 10 MG/2 ML VIAL. IV PRN (11:45)
[2019-02-13] MEDS ORDERED: SEVOFLURANE 31 TO 60 MINUTES. IH ONE ×2 (12:05)
[2019-02-13] MEDS ORDERED: KETOROLAC 30 MG/ML VIAL. ONE (12:05)
[2019-02-13] MEDS ORDERED: SEVOFLURANE 16 TO 30 MINUTES. IH ONE (12:05)
[2019-02-13] MEDS ORDERED: ePHEDrine PF IN SALINE 50 MG/10 ML SYRINGE. IV ONE (12:08)
--- NOTE | 2019-02-13 12:39 | OP ---
DATE OF SURGERY: PREOPERATIVE DIAGNOSIS: Incomplete . POSTOPERATIVE DIAGNOSIS: Incomplete . OPERATION PERFORMED: D and C, suction curettage. DESCRIPTION OF PROCEDURE: The patient was taken to the operating room. Under general anesthesia, she was placed in a dorsal lithotomy position. Perineum was prepped and draped in the usual manner. Weighted speculum inserted in the posterior vaginal wall. Anterior lip of the cervix held with a tenaculum. Uterine sound is used to measure the length of the uterine cavity, which is about 10 cm and cervix was already dilated and size 8 suction tip is used to suction the uterus. All the products obtained were subjected for pathological examination. Also, at the end of the curettage, medium-sized curette was used to curette the endometrial cavity. She did receive 20 units of Pitocin IV bottle of fluids during the time of the D and C. At the end of the curettage, speculum tenaculum is removed. The patient was sent to the recovery room in good condition. No complications encountered at time of the procedure. Estimated blood loss about 200 mL. Postoperative condition is stable. She will be followed in the office in 2 weeks for further postoperative care and treatment. CODEY SINGH MD DR: TINY/geraldo JOB#: [id number] / [id number]
[2019-02-13 13:05] VITALS: BP 107/63
--- NOTE | 2019-02-13 13:13 | NUR ---
Patient returned to unit via transport from Post-op. Recieved report from RATNA Hodgson. Patient vitals stable and set up to frequencies. Medication given for c/o pain and cramping. Will continue to monitor.
[2019-02-13] MEDS ORDERED: IBUPROFEN 200 MG TABLET. PO PRN (13:45)
[2019-02-13] MEDS ORDERED: ACETAMINOPHEN 325 MG TABLET. PO PRN (13:45)
--- NOTE | 2019-02-13 17:26 | NUR ---
Discharge Note: HILARIO PORTER Discharge instructions and discharge home medications reviewed with Patient and a copy given. All questions have been answered and understanding verbalized. The following instructions and handouts were given: Discharge Instructions, Follow Up Instructions, Prescriptions. Discontinued lines and drains: PIV removed, Catheter intact. Patient discharged to Home with Self-Care via Private Vehicle
--- NOTE | 2019-02-16 18:06 | PATHOLOGY ---
[facility] [place] Accession Number: [id number] . 01 Material submitted: . product of conception - PRODUCTS OF CONCEPTION . 01 Clinical history: . None provided. . 02 Diagnosis: Uterine contents, D and C: - Segments of decidual tissue and implantation site showing focal necrosis and acute inflammation, endocervical tissue showing chronic inflammation, and blood clot. . ([facility]:mm; 02/16/2019) [facility] 02/16/2019 1716 Local . 02 Comment: No chorionic villi are identified. . ([facility]:mm; 02/16/2019) . 02 Electronically signed: . Jayden Klein MD, Pathologist NPI- [id number] . 01 Gross description: . Received in formalin labeled "Dee Meade, products of conception" is a 22 g, 7.5 x 6.0 x 1.4 cm aggregate of red brown clotted blood and scant friable soft tissue fragments. No parts are identified. It Systems Analyst Consultant tissue is submitted in cassettes A1-A3. ([facility]; 02/14/2019) [facility] 02/14/2019 0824 Local . 02 Pathologist provided ICD-10: N71.9, N72 . 02 CPT . 439626 Specimen Comment: A courtesy copy of this report has been sent to Specimen Comment: [phone], . Specimen Comment: Report sent to / DR WICK Performed at: 01 [facility] [address], [place], [place] [id number] MD Delonte Roe MD Phone: [phone] Performed at: 02 [facility] [address], [place] [id number] MD Jayden Klein MD Phone: [phone]
== END 2019-02-13 17:29 | disposition home or self-care (01) | DRG 770 ==
LOC: ER 01:04 → 3 NORTH 03:49
PROVIDERS: ADMIT Obstetrics & Gynecology; ATTEND Obstetrics & Gynecology
PROC: 10D17ZZ Extraction of Products of Conception, Retained, Via Natural or Artificial Opening (ICD-10-PCS; principal; 2019-02-13 12:00)
DX: O03.4 Incomplete spontaneous abortion without complication (principal)
CPT/HCPCS: 36415; 80053; 81001; 81025; 84702; 85025; 87086; 88305; A7015; J0171; J0330; J0696; J1100; J1885; J2001; J2250; J2270; J2405; J2590; J2704; J3010; J7030; 99285-25; G0378

== ENCOUNTER 2019-04-20 13:58 | Emergency (ER) | payer OTHER ==
[~2019-04-20] VITALS: Ht 165.1 cm; Wt 61.2 kg
[2019-04-20 14:30] VITALS: BP 132/61
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
== END 2019-04-20 16:40 | disposition home or self-care (01) ==
LOC: ER 13:58
DX: S16.1XXA Strain of muscle, fascia and tendon at neck level, initial encounter (principal); M25.552 Pain in left hip; V49.59XA Passenger injured in collision with other motor vehicles in traffic accident, initial encounter; Y93.89 Activity, other specified; Y92.488 Other paved roadways as the place of occurrence of the external cause; Y99.8 Other external cause status
CPT/HCPCS: 72040; 73502; 81025; 99284

== ENCOUNTER 2020-03-07 07:30 | Emergency (ER) | payer OTHER ==
[~2020-03-07] VITALS: Ht 165.1 cm; Wt 60.2 kg
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
[2020-03-07] MEDS ORDERED: HYDR-3164 PO (09:00)
[2020-03-07] MEDS ORDERED: ORPH100T PO (09:00)
[2020-03-07] MEDS ORDERED: PRED20TA PO (09:02)
[2020-03-07 09:07] VITALS: BP 126/79
[2020-03-07] MEDS ORDERED: DEXAMETHASONE 4 MG TABLET PO ONE (09:15)
== END 2020-03-07 09:10 | disposition home or self-care (01) ==
LOC: ER 07:30
DX: S16.1XXA Strain of muscle, fascia and tendon at neck level, initial encounter (principal); S39.012A Strain of muscle, fascia and tendon of lower back, initial encounter; Z72.0 Tobacco use; V49.49XA Driver injured in collision with other motor vehicles in traffic accident, initial encounter; Y92.488 Other paved roadways as the place of occurrence of the external cause; Y93.89 Activity, other specified; Y99.8 Other external cause status
CPT/HCPCS: 99283

== ENCOUNTER 2020-05-02 17:19 | Emergency (ER) | payer OTHER ==
[~2020-05-02] VITALS: Ht 162.6 cm; Wt 61.0 kg
[~2020-05-02 17:19] MED LIST changes: +HYDR-3164 PO; +ORPH100T PO; +PRED20TA PO
[2020-05-02 19:23] LABS: BILIRUBIN,URINE NEGATIVE (NEG); CLARITY,URINE CLEAR; COLOR,URINE YELLOW; NITRITE,URINE NEGATIVE (NEG); PH,URINE 6.5 (<5.0-8.0); PROTEIN,URINE NEGATIVE (NEG-TRACE)
[2020-05-02 19:35] LABS: BACTERIA,URINE FEW /HPF (0-FEW); RBC,URINE 0 /HPF (0-2); WBC,URINE RARE /HPF (0-4)
[2020-05-02 20:28] LABS: BASO # 0.1 x10^3/uL (0.0-0.2); BASO % 1 % (0-3); EOS # 0.1 x10^3/uL (0.0-0.7); EOS % 1 % (0-3); HEMATOCRIT 37.6 % (36.0-47.0); LYMPH % 30 % (24-48); MEAN CORPUSCULAR HEMOGLOBIN 30 pg (25-35); MEAN CORPUSCULAR HGB CONC 35 g/dL (31-37); MEAN CORPUSCULAR VOLUME 87 fL (79-100); MONO # 0.4 x10^3/uL (0.0-1.1); MONO % 6 % (0-9); NEUT # 4.2 x10^3/uL (1.8-7.7); NEUT % 63 % (31-73); PLATELET COUNT 187 x10^3/uL (140-400); RED BLOOD COUNT 4.31 x10^6/uL (3.50-5.40); WHITE BLOOD COUNT 6.7 x10^3/uL (4.0-11.0)
[2020-05-02 20:41] LABS: CALCIUM 9.3 mg/dL (8.5-10.1); CREATININE 0.6 mg/dL (0.6-1.0); GFR 148.6; POTASSIUM 3.6 mmol/L (3.5-5.1)
[2020-05-02 20:47] LABS: TOTAL BILIRUBIN 0.3 mg/dL (0.2-1.0); TOTAL PROTEIN 8.2 g/dL (6.4-8.2)
--- NOTE | 2020-05-02 20:57 | PHYS DOC ---
Past Medical History Past Medical History: No Pertinent History Past Surgical History: Other Additional Past Surgical Histo: D&C, hernia repair Smoking Status: Light Tobacco Smoker Alcohol Use: Rarely Drug Use: None General Adult EDM: Chief Complaint: VAGINAL BLEEDING HPI: HPI: Patient is a 24 year old female who is A1 approximately 14 weeks presents with a chief complaint of vaginal spotting. Patient states she woke up this morning and noticed blood in her underwear. Throughout the day she has had several episodes of spotting. Patient states she has some mild abdominal pelvic discomfort. Last menstrual period was January 30. Patient's last she had a miscarriage. Patient is concerned that she could be possibly having another miscarriage Review of Systems: Review of Systems: Constitutional: Denies fever or chills. [] Eyes: Denies change in visual acuity. [] HENT: Denies nasal congestion or sore throat. [] Respiratory: Denies cough or shortness of breath. [] Cardiovascular: Denies chest pain or edema. [] GI: Denies abdominal pain, nausea, vomiting, bloody stools or diarrhea. [] : Denies dysuria. [Positive positive vaginal bleeding] Musculoskeletal: Denies back pain or joint pain. [] Integument: Denies rash. [] Neurologic: Denies headache, focal weakness or sensory changes. [] Endocrine: Denies polyuria or polydipsia. [] Lymphatic: Denies swollen glands. [] Psychiatric: Denies depression or anxiety. [] Heart Score: Risk Factors: Risk Factors: DM, Current or recent (<one month) smoker, HTN, HLP, family history of CAD, obesity. Risk Scores: Score 0 - 3: 2.5% MACE over next 6 weeks - Discharge Home Score 4 - 6: 20.3% MACE over next 6 weeks - Admit for Clinical Observation Score 7 - 10: 72.7% MACE over next 6 weeks - Early Invasive Strategies Allergies: Allergies: Allergies Coded Allergies Type Severity Reaction Last Updated Verified No Known Drug Allergies 03/07/20 No Physical Exam: PE: Constitutional: Well developed, well nourished, no acute distress, non-toxic appearance. [] HENT: Normocephalic, atraumatic, bilateral external ears normal, oropharynx moist, no oral exudates, nose normal. [] Eyes: PERRLA, EOMI, conjunctiva normal, no discharge. [] Neck: Normal range of motion, no tenderness, supple, no stridor. [] Cardiovascular:Heart rate regular rhythm, no murmur [] Lungs & Thorax: Bilateral breath sounds clear to auscultation [] Abdomen: Bowel sounds normal, soft, no tenderness, no masses, no pulsatile masses. [] Skin: Warm, dry, no erythema, no rash. [] Back: No tenderness, no CVA tenderness. [] Extremities: No tenderness, no cyanosis, no clubbing, ROM intact, no edema. [] Neurologic: Alert and oriented X 3, normal motor function, normal sensory function, no focal deficits noted. [] Psychologic: Affect normal, judgement normal, mood normal. [] pelvic exam deferred Current Patient Data: Labs: Laboratory Tests Test 05/02/20 16:44 05/02/20 19:19 05/02/20 20:20 Urine Collection Type Unknown Urine Color Yellow Urine Clarity Clear Urine pH 6.5 (<5.0-8.0) Urine Specific [place] 1.010 (1.000-1.030) Urine Protein Negative mg/dL (NEG-TRACE) Urine Glucose (UA) Negative mg/dL (NEG) Urine Ketones (Stick) Negative mg/dL (NEG) Urine Blood Negative (NEG) Urine Nitrite Negative (NEG) Urine Bilirubin Negative (NEG) Urine Urobilinogen Dipstick 1.0 mg/dL (0.2 mg/dL) Urine Leukocyte Esterase Negative (NEG) Urine RBC 0 /HPF (0-2) Urine WBC Rare /HPF (0-4) Urine Squamous Epithelial Cells Mod /LPF Urine Bacteria Few /HPF (0-FEW) Urine Mucus Slight /LPF POC Urine HCG, Qualitative Hcg positive (Negative) White Blood Count 6.7 x10^3/uL (4.0-11.0) Red Blood Count 4.31 x10^6/uL (3.50-5.40) Hemoglobin 13.0 g/dL (12.0-15.5) Hematocrit 37.6 % (36.0-47.0) Mean Corpuscular Volume 87 fL (79-100) Mean Corpuscular Hemoglobin 30 pg (25-35) Mean Corpuscular Hemoglobin Concent 35 g/dL (31-37) Red Cell Distribution Width 14.0 % (11.5-14.5) Platelet Count 187 x10^3/uL (140-400) Neutrophils (%) (Auto) 63 % (31-73) Lymphocytes (%) (Auto) 30 % (24-48) Monocytes (%) (Auto) 6 % (0-9) Eosinophils (%) (Auto) 1 % (0-3) Basophils (%) (Auto) 1 % (0-3) Neutrophils # (Auto) 4.2 x10^3/uL (1.8-7.7) Lymphocytes # (Auto) 2.0 x10^3/uL (1.0-4.8) Monocytes # (Auto) 0.4 x10^3/uL (0.0-1.1) Eosinophils # (Auto) 0.1 x10^3/uL (0.0-0.7) Basophils # (Auto) 0.1 x10^3/uL (0.0-0.2) Sodium Level 134 mmol/L (136-145) L Potassium Level 3.6 mmol/L (3.5-5.1) Chloride Level 100 mmol/L (98-107) Carbon Dioxide Level 24 mmol/L (21-32) Anion Gap 10 (6-14) Blood Urea Nitrogen 7 mg/dL (7-20) Creatinine 0.6 mg/dL (0.6-1.0) Estimated GFR (Cockcroft-Gault) 148.6 BUN/Creatinine Ratio 12 (6-20) Glucose Level 79 mg/dL (70-99) Calcium Level 9.3 mg/dL (8.5-10.1) Total Bilirubin 0.3 mg/dL (0.2-1.0) Aspartate Amino Transferase (AST) 11 U/L (15-37) L Alanine Aminotransferase (ALT) 17 U/L (14-59) Alkaline Phosphatase 67 U/L (46-116) Total Protein 8.2 g/dL (6.4-8.2) Albumin 4.0 g/dL (3.4-5.0) Albumin/Globulin Ratio 1.0 (1.0-1.7) Laboratory Tests 05/02/20 20:20 Laboratory Tests 05/02/20 20:20 Vital Signs: Vital Signs Date Time Temp Pulse Resp B/P (MAP) Pulse Ox O2 Delivery O2 Flow Rate FiO2 05/02/20 18:57 98.8 88 20 113/64 (80) 99 Room Air 98.8 EKG: EKG: [] Radiology/Procedures: Radiology/Procedures: [] Course & Med Decision Making: Course & Med Decision Making Pertinent Labs and Imaging studies reviewed. (See chart for details) [] Was evaluated for chief complaint. Work-up consisted of laboratory analysis. Patient O+. Ultrasound performed shows intrauterine 9 weeks heart rate 171 Will be placed on vitamins. Patient to follow-up with her [facility] Dragjodi Disclaimer: Aaron Disclaimer: This electronic medical record was generated, in whole or in part, using a voice recognition dictation system. Departure Departure Impression: Primary Impression: Threatened Additional Impressions: Vaginal bleeding Disposition: 01 DC HOME SELF CARE/HOMELESS Condition: STABLE Referrals: NO PCP (PCP) Patient Instructions: Threatened Miscarriage Scripts Pnv Cmb#95/Ferrous Fumarate/Fa ( TABLET) 1 Each Tablet 1 TAB PO DAILY for 30 Days, #30 TAB 0 Refills Prov: RODRIGUEZ CHEN DO 05/02/20 RODRIGUEZ CHEN DO May 02, 2020 20:57
[2020-05-02 21:30] VITALS: BP 119/67
[2020-05-02] MEDS ORDERED: PNV1TABL25 PO (21:40)
--- NOTE | 2020-05-02 22:02 | RAD ---
Ultrasound HISTORY: Vaginal bleeding and Sonographic examination appearance was performed by transabdominal technique and multiple static imag es were obtained. There is a single live intrauterine . The heartbeat is confirmed at 171 beats per minute. The LMP of 02/01/2020 corresponds with a 13 weeks 0 day gestational age and estimated confinement of J [email or web address]. The crown-rump length of 2.4 cm corresponds the 9 week 1 day gestational age estimated confinement of December 04, 2020. The left ovary appears normal normal blood flow. The right ovary is not well seen. IMPRESSION: 1. Single live intrauterine at 9 weeks 1 day gestational age. Discrepancy with size by LMP is likely due to an inaccurate LMP. 2. No structural abnormality identified. A short-term follow-up ultrasound could be performed if clin ically indicated otherwise a structural survey would be performed at 18-21 weeks gestational ag e. Electronically signed by: Ruddy Katz III, MD (05/02/2020 9:59 PM) [facility]
== END 2020-05-02 22:00 | disposition home or self-care (01) ==
LOC: ER 17:19
DX: O20.0 Threatened abortion (principal); N89.8 Other specified noninflammatory disorders of vagina; Z98.890 Other specified postprocedural states; Z3A.13 13 weeks gestation of pregnancy
CPT/HCPCS: 36415; 76801; 80053; 81001; 81025; 84702; 85025; 99284